=== PATIENT | female | born 1960 | race Caucasian/White ===

== ENCOUNTER 2017-10-30 17:44 | Emergency (ER) | payer OTHER ==
[~2017-10-30] VITALS: Ht 162.6 cm; Wt 63.5 kg
--- NOTE | 2017-10-30 18:00 | NUR ---
[id number], came to er c/o generalized skin redness, hives, swollen lips and itchy after taking boyfriend's bactrim. Speaks in full sentences. RR is even and unlabored with nad noted. Skin is warm and dry. Awaiting md for eval.
[2017-10-30] MEDS ORDERED: diphenhydrAMINE HCL 50 MG/ML VIAL ONE (18:20)
[2017-10-30] MEDS ORDERED: methylPREDNISolone SOD SUCC 125 MG/2ML VIAL ONE (18:20)
[2017-10-30] MEDS ORDERED: IV NS 0.9% 500 ML IV ONE (18:30)
[2017-10-30] MEDS ORDERED: methylPREDNISolone SOD SUCC 125 MG/2ML VIAL IV ONE (18:30)
[2017-10-30] MEDS ORDERED: diphenhydrAMINE HCL 50 MG/ML VIAL IV ONE (18:30)
[2017-10-30] MEDS ORDERED: FAMOTIDINE/PF INJ 20 MG/2 ML VIAL IV ONE ×2 (18:56→19:00)
--- NOTE | 2017-10-30 18:59 | NUR ---
Hives and skin redness are improving.
--- NOTE | 2017-10-30 19:05 | NUR ---
Report given to RONAL Vernon for [facility].
--- NOTE | 2017-10-30 19:11 | NUR ---
REPORT RECEIVED FROM RONAL WHITE FOR [facility].
--- NOTE | 2017-10-30 19:29 | NUR ---
IV removed. Catheter intact and site benign. Pressure and 4x4 applied to site. No bleeding noted. Patient discharged to home in stable condition. Written and verbal after care instructions given. Patient verbalizes understanding of instruction. Patient ambulatory with a steady gait.
[2017-10-30 19:30] VITALS: BP 112/68
== END 2017-10-30 19:32 | disposition home or self-care (01) ==
LOC: ER 17:47
DX: T37.0X5A Adverse effect of sulfonamides, initial encounter (principal); T36.8X5A Adverse effect of other systemic antibiotics, initial encounter; F17.200 Nicotine dependence, unspecified, uncomplicated; Y92.89 Other specified places as the place of occurrence of the external cause
CPT/HCPCS: A4606; J1200; J2930; J3490; J7040; Z7610